=== PATIENT | male | born 1970 | race Hispanic/Latino ===

== ENCOUNTER 2019-06-14 23:52 | Inpatient (IN) | payer OTHER ==
[2019-06-15] MEDS ORDERED: cefTRIAXone\\ROCEPHIN 1 GM VIAL ONE (00:12)
[2019-06-15] MEDS ORDERED: Sodium Chloride 0.9% 100 ML ONE (00:12)
[2019-06-15] MEDS ORDERED: Metoclopramide HCl 10 MG/2 ML VIAL ONE (00:14)
--- NOTE | 2019-06-15 00:25 | PDOC.FPRHP ---
- History of Present Illness Chief Complaint: Coughing Up Blood History of Present Illness: Patient is a 48 y/o male who presents from half-way after coughing up blood. Patient states that he vomited up "a lot the first time, and a little bit the second time". Patient states that the vomitus looked like "coffee and black". Patient admits to associated symptoms of ABD pain, dizziness and lightheadedness. Patient stated that he went to see the nurse for his unit, and he subsequently vomited a third time, with minimal bloody vomitus noted. Care Home staff then notified EMS, who transferred him to [facility], where he was transfused 1U pRBCs and subsequently transferred to [facility] to receive a higher level of care. Patient states that he has had episodes of hematemsis in the past that have required blood transfusions. Per the patient, a recent endoscopy revealed multiple "holes in my stomach that were oozing blood." Per the patient, he has had +6 episodes of hematemisis in the recent past - one of which required banding of esophageal varices in August 2018. Patient admits to chills, blurry vision, nausea, RUQ ABD pain, black tarry stool (for 2 days) Patient denies fevers, oral sores, dysuria, hematuria, or excessive NSAID use. Per the patient, he had a colonoscopy in 2015, and was told that he had hemorrhoids and polyps - no follow-up was required. ED Course: While in the ED, the patient received 1U pRBCs (2U Total Since Initial Episode of Hematemesis) and was started on a Protonix gtt and an Octreotide gtt. - Allergies/Adverse Reactions Allergies Allergy/AdvReac Type Severity Reaction Status Date / Time No Known Allergies Allergy Unverified 06/15/19 00:16 - Home Medications Comments: Records obtained from half-way. - History PMHx: Cirrhosis, Hepatitis C, DM2, HTN PSHx: None FHx: DM2 (Multiple Member) Fatty Liver (Brother and Sister) Social: Patient admits to remote EtOH abuse, current tobacco abuse (3 cigarettes per week), and remote cocaine abuse Allergies: None Code Status: Full - Review of Systems General: denies: fever/chills Eyes: reports: vision changes Respiratory: reports: cough, exercise intolerance. denies: shortness of breath Cardiovascular: reports: edema (Patient thought that he had recently noticed swelling in his LEs). denies: chest pain Gastrointestinal: reports: nausea, vomiting, abdominal pain, GI bleeding. denies: diarrhea, constipation Genitourinary: denies: dysuria Skin: denies: rashes Neurological: reports: weakness. denies: syncope - Vital signs BP: [113/70] HR: [115] RR: [18] Tmax: [98.4] Pox: [100]% on [Room Air] Wt: [ 81 kg] - Physical Exam Constitutional: NAD, awake, alert and oriented, well developed HEENT: normocephalic and atraumatic, PERRLA, conjunctiva clear, no scleral icterus, grossly normal vision, grossly normal hearing, normal nasal mucosa, MMM , oropharynx clear Neck: supple, FROM, trachea midline, no LAD Chest: no-tender to palpation, no lesions Heart: normal S1/S2, no murmurs/rubs/gallops, pulses present, no edema -Heart: Tachycardia Lungs: CTAB, no respiratory distress, good air movement, no rales/rhonchi, no wheezing, no retractions Abdomen: soft, bowel sounds present, no masses/distention, no hernias -Abdomen: Mild RUQ TTP Musculoskeletal: normal structure, other (ROM grossly intact - patient was in restraints) Neurological: no focal deficit Skin: no rash/lesions (Patient appeared pale/jaundiced with a Cap Refill > 2 seconds) Heme/Lymphatic: no purpura, no petechia Psychiatric: intact recent and remote memory FMR H&P: Results - Labs Result Diagrams: 06/15/19 14:16 06/15/19 05:56 FMR H&P: A/P - Problem List (1) Hematemesis Current Visit: Yes Status: Acute Code(s): K92.0 - HEMATEMESIS (2) Cirrhosis Current Visit: Yes Status: Acute Code(s): K74.60 - UNSPECIFIED CIRRHOSIS OF LIVER (3) Hepatitis C Current Visit: Yes Status: Acute Code(s): B19.20 - UNSPECIFIED VIRAL HEPATITIS C WITHOUT HEPATIC COMA (4) HTN (hypertension) Current Visit: Yes Status: Acute Code(s): I10 - ESSENTIAL (PRIMARY) HYPERTENSION (5) DM2 (diabetes mellitus, type 2) Current Visit: Yes Status: Acute (6) History of esophageal varices Current Visit: Yes Status: Acute Code(s): Z87.19 - PERSONAL HISTORY OF OTHER DISEASES OF THE DIGESTIVE SYSTEM (7) Upper GI bleed Current Visit: Yes Status: Acute Code(s): K92.2 - GASTROINTESTINAL HEMORRHAGE, UNSPECIFIED - Plan Patient is a 48 y/o male with a PMH significant for Cirrhosis, HepC, and Esophageal Varices who presents to the ED from [facility] for evaluation of "coughing up blood." 1. Upper GI Bleed -Recent episodes of hematemesis are concerning in light of known comorbidities and Hx of Esophageal Varices -s/p 1U pRBCs at outside facility - will transfuse an additional unit now -No recurrent episodes of hematemsis since admission -Repeat CBC, CMP and PT/INR/aPTT later this AM following transfusion -Started on Protonix gtt in ED - will continue -s/p Ceftriaxone in ED - will continue -GI: Consulted, recs appreciated 2. Cirrhosis -Likely contributing to #1 -Will avoid hepatotoxic agents -Holding home Lactulose regimen for now -Continue to monitor 3. Hx of Esophageal Varices -Patient denies bright red blood in vomitus but Hx of Esophageal Varices is concerning -Will initiate Octreotide gtt at this time - plan confirmed with GI -Will restart home Propranolol regimen -Continue to monitor 4. DM2 -Blood Glucose: 385 on admission -b-Hydroxybutyrate: Pending -Will resume home medication regimen -Moderate SSI -Accuchecks Q6H -Hypoglycemia Protocol 5. HTN -BP was at acceptable range during evaluation in ED -Will bolus an additional unit of NS at this time -Will restart home Propranolol regimen 6. Hepatitis C -Patient does not take medications for HepC at home -Continue to monitor PCP: [facility] - Long-Term Code: Full Diet: NPO Activity: Strict Bedrest VTE PPx: SCDs Dispo: Patient is currently stable and admitted to the Medical Floor for evaluation of Upper GI Bleed. Transfuse 1U pRBCs and additional fluids and medications as per above. GI consulted and will evaluate this AM for planned endoscopy - recs appreciated. Await results of labs as per above and tailor plan of care accordingly. Expected LOS > 48H. FMR H&P: Upper Level - Plan Date/Time: 06/15/19 0025 PCP: Long-Term HPI: This is a 48 yo M with hx cirrhosis and esophageal varices w/ banding in August 2018 being admitted for GI Bleed. Pertinent PMH includes cocaine abuse, alcohol abuse, Hep C, DM, HTN. He was admitted to [facility] last week and had an EGD which showed PUD. Today he states he has had hematemesis for 2 days along with dark stools. States he has been feeling weak and light-headed when standing up and this was his reason for being sent to the ED for evaluation. He denies fevers, chills, sweats. He states he was still tolerating PO. He states when he was younger he got blackout drunk often, thinks he got Hep C from tattoos. He received 1 U of blood at outside ED along with octreotide and protonix. He received another 1U of blood in our ED along with rocephin, reglan, and protonix. (2 U blood total) REVIEW OF SYSTEMS: Gen: no fever, chills, or sweats Neuro: denies headache Eyes: no visual changes ENT: no hearing changes, no sore throat, no congestion Resp: denies cough, SOB Card: denies CP, palpitations GI: see hpi Heme: no easy bruising/bleeding, no blood thinners Skin: no rash, no erythema PHYSICAL EXAMINATION: General: NAD, alert and oriented x3 HEENT: PERRLA, EOMI, normal sclera, oropharynx without erythema or exudate Neck: Supple. Full ROM. Heart/Cardiovascular System: RRR, Cap refill < 3 seconds, no rub, no murmur Lungs/Respiratory System: CTA-B, no resp distress Abdomen/Gastro-Intestinal System: no abdominal tenderness, normal bowel sounds, non-distended, soft, no rebound or guarding Extremities: Warm extremities. No cyanosis or edema Neuro: No gross deficits appreciated. CN 2-12 grossly intact Psychiatry: Awake, Alert and cooperative with exam Skin: No lesions, rashes, or ulcers Musculoskeletal: Full ROM Labs from [place]: Hgb 5.6, Hct 17.9, WBC 6.8, Plt 88 INR 1.3, PT 14.3 Na 127, K 5.3, Cl 98, Co2 17, BUN 44, Cr 0.9, Glu 383 CXR no acute process A/P: # Upper GI bleed, hx cirrhosis and eso varices - 2U PRBC total, protonix and octreotide drips, s/p rocephin - Spoke to GI, will see patient in AM, NPO - BUN/Cr elevated, Will cont IVF aggressive - On lactulose at [facility], will hold for now - Hx of hep C, alcoholism # HTN, DM - Home meds - AG 12, refused insulin last 2 days, resume home regimen # Anxiety/Depression - Effexor, Risperdal # Hyponatremia - Corrected to 132, NS, re-check in AM, likely volume down Fluids: NS Code status: full PPx: none Dispo: >2 midnights, pending GI eval Addendum - Attending - Attending Attestation Date/Time: 06/15/19 3739 I personally evaluated the patient and discussed the management with Dr. Sheets and Jackie. I agree with the History, Examination, Assessment and Plan documented above with any addition or exceptions noted below.
[2019-06-15] MEDS ORDERED: Pantoprazole 80 MG, Admixture Fee 1 EACH in Sodium Chloride 0.9% 100 ML IVPB SCH (00:30)
[2019-06-15] MEDS ORDERED: Dextrose 50% Abboject 50 ML SYRINGE SLOW IVP PRN (01:54)
[2019-06-15] MEDS ORDERED: HumaLOG 300 UNITS/3 ML VIAL SC PRN (01:54)
[2019-06-15] MEDS ORDERED: Dextrose 5% in Water 1,000 ML IV PRN (01:54)
[2019-06-15] MEDS ORDERED: Acetaminophen 325 MG TAB PO PRN (03:03)
[2019-06-15] MEDS ORDERED: Ondansetron PF 4 MG/2 ML Vial IVP PRN (03:03)
[2019-06-15] MEDS ORDERED: Sodium Chloride 0.9% 1,000 ML IV SCH ×2 (03:03)
[2019-06-15] MEDS ORDERED: Ondansetron ODT 4 MG TAB SL PRN (03:03)
[2019-06-15] MEDS: Octreotide Acetate 1,250 MCG in Sodium Chloride 0.9% 250 ML 250 ML IVPB SCH (04:09)
[2019-06-15] MEDS: HumaLOG 300 UNITS/3 ML VIAL SC PRN ×2 (04:47→17:44)
[2019-06-15 06:13] LABS: INR-International Normal Ratio 1.3; PTT 30.3 SEC (22.9-36.1); Prothrombin Time 15.8 SEC (12.0-14.7)
[2019-06-15 06:23] LABS: #Lymphocytes 1.4 thou/uL (1.20-3.40); #Monocytes 0.5 thou/uL (0.11-0.59); #Neutrophils 2.6 thou/uL (1.40-6.50); %Basophils 0.5 % (0.0-1.0); %Lymphocytes 30.3 % (21.0-51.0); %Monocytes 10.8 % (0.0-10.0); %Neutrophils 57.3 % (42.0-75.0); Hemoglobin 6.7 g/dL (14.0-18.0); Hypochromia MODERATE=16-30 cells (100X) (0-5/hpf); MDiff Complete? YES; Mean Corpuscular HGB CONC 33.1 g/dL (32.0-36.0); Mean Corpuscular Volume 87.7 fL (78.0-98.0); Mean Platelet Volume 10.2 fL (7.4-10.4); Platelet Count 58 thou/uL (130-400); Platelet Morphology Comment Appears Decreased; RBC Distribution Width 14.2 % (11.5-14.5); Red Blood Cell (RBC) Count 2.32 mill/uL (4.70-6.10); Reflex for Review?? YES; White Blood Cell (WBC) Count 4.5 thou/uL (4.8-10.8)
[2019-06-15 06:29] LABS: ALT (SGPT) 37 U/L (8-55); AST (SGOT) 34 U/L (5-34); Albumin 2.5 g/dL (3.5-5.0); Alkaline Phosphatase 65 U/L (40-110); Anion Gap 10 mmol/L (10-20); BUN (Urea Nitrogen) 27 mg/dL (8.9-20.6); Bilirubin, Total 0.7 mg/dL (0.2-1.2); Calc. Creatinine Clearance 105 mL/min (70-130); Calcium 6.9 mg/dL (7.8-10.44); Carbon Dioxide 21 mmol/L (22-29); Chloride 106 mmol/L (98-107); Estimated GFR-MDRD Greater than 90; Globulin 2.2 g/dL (2.4-3.5); Glucose 271 mg/dL (70-105); Potassium 4.3 mmol/L (3.5-5.1); Protein, Total 4.7 g/dL (6.0-8.3); Sodium 133 mmol/L (136-145)
[2019-06-15] MEDS ORDERED: metFORMIN 500 MG TAB PO SCH (08:00)
[2019-06-15] MEDS ORDERED: Ketamine 50 MG/ML (10ML VIAL) ONE (09:44)
[2019-06-15] MEDS ORDERED: Ondansetron ODT 4 MG TAB ONE (09:57)
[2019-06-15] MEDS: Ondansetron PF 4 MG/2 ML Vial IVP PRN ×2 (11:33→21:06)
[2019-06-15] MEDS ORDERED: PROPOFOL 200 MG/20 ML VIAL ONE (11:58)
[2019-06-15] MEDS: NPH, Human Insulin Isophane 300 UNIT/3 ML VIAL SC SCH ×2 (12:16→20:58)
[2019-06-15] MEDS: Propranolol 10 MG TAB PO SCH ×2 (12:16→20:57)
--- NOTE | 2019-06-15 13:12 | CON ---
DATE OF CONSULTATION: 06/15/2019 REASON FOR CONSULTATION: Hematemesis, melena. CONSULTING PROVIDER: Deyvi Sheets MD HISTORY OF PRESENT ILLNESS: The patient is a 48-year-old male with past medical history of cirrhosis complicated by esophageal varices, chronic hepatitis C infection (status unknown), diabetes, and hypertension, presenting with complaints of hematemesis. He states that he had been complaining of hematemesis for the last few weeks and was initially seen at [facility] for this particular condition. He underwent upper endoscopy last week and was told that they "found something oozing" with no interventions taken per the patient. He was subsequently discharged to the hospital back to the unit, and while on the unit, continued to have intermittent episodes of hematemesis in addition to the appearance of black stools approximately 2 days ago. These black stools he would have approximately 2 to 3 per day were solid in consistency, but hard to clean off. This was associated with increased coffee-ground emesis x2 over the same time period, which then ultimately prompted him to come back to the hospital. While in the ER, the patient was noted to have a significantly decreased hemoglobin and hematocrit, and he was subsequently transferred to [facility] from [facility] for further evaluation. Currently, the patient states that he has been having increasing right lower quadrant abdominal pain for the last 2 weeks and characterized as a fullness/tightness type sensation that is nonradiating and reaches a severity of 8/10. The pain is worse with eating or drinking, but better with fasting states and passing gas/having a bowel movement. Otherwise, he endorses nausea and vomiting with the coffee-ground emesis as stated above. Otherwise, he denies any fevers, chills, hematochezia, odynophagia, dysphagia, or weight loss. Upon speaking with the patient, his last colonoscopy was in 2016 with hemorrhoids and polyps removed at that time. He denies any family history of GI malignancies. REVIEW OF SYSTEMS: A 10-category review of systems was obtained with all responses negative except for the pertinent positives as listed in HPI. PAST MEDICAL HISTORY: As per HPI. PAST SURGICAL HISTORY: 1. Multiple upper endoscopies with band ligation performed in the past. FAMILY HISTORY: Denies any GI malignancies, but does have a family history of liver disease (fatty liver). SOCIAL HISTORY: Denies any tobacco, alcohol, or illicit drug use. OUTPATIENT MEDICATIONS: Reviewed. ALLERGIES: NO KNOWN DRUG ALLERGIES. PHYSICAL EXAMINATION: VITAL SIGNS: Temperature 98.3, pulse 88 blood pressure 100/65, respiratory rate 18, and saturating 98% on room air. GENERAL: The patient was lying in bed, in no acute distress. Alert and oriented x4. HEENT: Normocephalic and atraumatic. NECK: Supple. No JVD or scleral icterus noted. CARDIOVASCULAR: Regular rate and rhythm with no discernable murmurs, gallops, or rubs. RESPIRATORY: Clear to auscultation bilaterally with no discernable wheezes or rales. ABDOMEN: Normoactive bowel sounds. Soft and nondistended. Mild tenderness to palpation in the right upper quadrant, right lower quadrant, and suprapubic regions. EXTREMITIES: No cyanosis, clubbing, or edema. LABORATORY DATA: CBC with a white blood cell count of 4.5, hemoglobin 6.7, hematocrit 20.3, and platelets 58. INR 1.3. Chemistry with a sodium of 133, potassium 4.3, chloride 106, CO2 of 21, BUN 27, creatinine 0.87, and glucose 271. AST 34, ALT 37, alkaline phosphatase 65, and total bilirubin 0.7. Calculation of his MELD-sodium score was 15. IMAGING DATA: No current GI imaging is available for review. ASSESSMENT AND PLAN: The patient is a 48-year-old male with past medical history of diabetes, hypertension, and cirrhosis, complicated by a bleeding esophageal varices in the past, presenting with hematemesis and melena concerning for an upper gastrointestinal bleed. Upper gastrointestinal bleed: The patient is presenting with a recent history of hematemesis, for which he was worked up at [facility] and underwent upper endoscopy last week. He was told that he had "something oozing" in addition to possible Garces esophagus. Per the patient, no interventions were taken at that time and he was ultimately discharged back to his detention cell via medical management. However, approximately 2 days ago, he began having increasing episodes of coffee-ground emesis in addition to melenic type stools, concerning for an upper gastrointestinal bleed. He was subsequently transferred to [facility] and noted to have a significantly decreased hemoglobin and hematocrit when compared to baseline. He was then transferred to [facility] for further evaluation via GI subspecialty. At this time, the differential could include peptic ulcer disease, portal hypertensive gastropathy, esophagitis, esophageal varices (especially given his history of bleeding varices in the past), arteriovenous malformation, Dieulafoy lesion, or gastrointestinal neoplasm (much less likely given recent negative upper endoscopy). RECOMMENDATIONS: 1. Would continue to trend his hemoglobin and hematocrit and transfuse as necessary to maintain the hemoglobin and hematocrit of 7/21. 2. Continue to monitor clinically for signs of active GI bleeding. 3. Would continue with PPI and octreotide drips in light of possible variceal bleed. 4. Agree with antibiotic administration for SBP prophylaxis in light of GI bleed. 5. Would proceed with urgent upper endoscopy for further evaluation. Further recommendations to follow procedure. We will continue to follow. Please call with any questions. Job ID: [id number]
[2019-06-15 14:37] LABS: #Basophils 0.1 thou/uL (0.0-0.2); #Eosinphils 0.1 thou/uL (0.0-0.7); #Lymphocytes 1.1 thou/uL (1.20-3.40); #Monocytes 0.6 thou/uL (0.11-0.59); #Neutrophils 4.4 thou/uL (1.40-6.50); %Basophils 0.8 % (0.0-1.0); %Eosinophils 1.2 % (0.0-10.0); %Lymphocytes 16.8 % (21.0-51.0); %Monocytes 10.3 % (0.0-10.0); Hemoglobin 8.7 g/dL (14.0-18.0); Mean Corpuscular Hemoglobin 29.7 pg (27.0-31.0); Mean Corpuscular Volume 87.2 fL (78.0-98.0); Mean Platelet Volume 10.7 fL (7.4-10.4); Platelet Count 63 thou/uL (130-400); RBC Distribution Width 14.1 % (11.5-14.5); Red Blood Cell (RBC) Count 2.94 mill/uL (4.70-6.10); White Blood Cell (WBC) Count 6.2 thou/uL (4.8-10.8)
--- NOTE | 2019-06-15 15:33 | OP ---
DATE OF PROCEDURE: 06/15/2019 PROCEDURE PERFORMED: Esophagogastroduodenoscopy with band ligation x4. INDICATIONS FOR PROCEDURE: Hematemesis, melena. DESCRIPTION OF PROCEDURE: After the risks and benefits of the procedure were explained to the patient including risks of bleeding, infection, perforation, reactions to anesthesia, aspiration, and/or pain, informed consent was obtained. The patient was then taken to the endoscopy suite, where he was maneuvered into the left lateral decubitus position followed by introduction of deep anesthesia via propofol and anesthesia support. Once adequate sedation was achieved, the standard gastroscope was introduced into the mouth with intubation of the esophagus, stomach, and the proximal small intestines with the findings listed below. The patient tolerated the procedure well with no immediate perioperative complications. Upon conclusion of the procedure, all equipment was removed from the patient and he was transferred to PACU in satisfactory condition. FINDINGS: Esophagus: Normal-appearing mucosa was seen in the proximal and mid esophagus; however, in the distal esophagus, large (grade 2) esophageal varices were seen with increased mucosal erythema and red karolina sign overlying 2 of the esophageal varices. Given the high-risk stigmata of bleeding, band ligation x4 were then performed with active bleeding from the varices during the banding process, but no bleeding noted after the maneuver. Elberfeld-colored mucosa was also seen in the distal esophagus, extending from the gastroesophageal junction approximately around 5 cm with scattered squamous islands for approximately 1 cm beyond that (Glasford classification C5 M6). There were increased erosions seen in the distal esophagus as well, measuring up to 1 cm in size, but not extending between more than 1 gastric fold. Otherwise, there was no evidence of mass lesions. Stomach: Very mild mucosal erythema was seen in the gastric cardia, fundus, body, and along the greater curvature in a mosaic type pattern, consistent with his known portal hypertensive gastropathy. Normal-appearing mucosa was then seen in the antrum and incisura. On retroflexion, there was no evidence of gastric varices. Otherwise, there was no evidence of erosions, ulcerations, mass lesions, or active/recent bleeding. Duodenum: Normal-appearing mucosa was seen in both the duodenal bulb and second portion of the duodenum. There was no evidence of erosions, ulcerations, mass lesions, or active/recent bleeding. IMPRESSION: 1. Large (grade 2) distal esophageal varices with red karolina signs status post band ligation x4. 2. LA grade B/C reflux-mediated erosive esophagitis. 3. Elberfeld-colored mucosa in the distal esophagus, consistent with Garces's esophagus (Glasford classification C5 M6); not biopsied today given the presence of esophageal varices. 4. Mild portal hypertensive gastropathy. RECOMMENDATIONS: 1. Would continue to trend his hemoglobin and hematocrit and transfuse as necessary to maintain the hemoglobin and hematocrit of 7/21. 2. Continue to monitor clinically for signs of active GI bleeding. 3. Would continue the patient on PPI drip for duration of 24 hours, then transfer the patient to pantoprazole 40 mg IV b.i.d. 4. Would continue the patient on the octreotide drip for total duration of therapy of 72 hours. 5. Would continue ceftriaxone 1 g daily as part of infection prophylaxis in a patient with cirrhosis with GI bleed. 6. Pain control per primary team. 7. The patient will likely need a repeat upper endoscopy in 4 to 6 weeks for re-evaluation of esophageal varices and repeat band ligation at that time if deemed necessary. We will continue to follow. Please call with any questions. Job ID: [id number]
[2019-06-15] MEDS ORDERED: cefTRIAXone\\ROCEPHIN 1 GM in Sodium Chloride 0.9% 100 ML IVPB SCH (17:00)
[2019-06-15] MEDS: Sodium Chloride 0.9% 1,000 ML IV SCH (17:41)
[2019-06-15] MEDS: Artificial Tear Sol 15 ML BOT EA EYE PRN (20:59)
[2019-06-15] MEDS: Pantoprazole 80 MG in Sodium Chloride 0.9% 100 ML IVP SCH (22:19)
[2019-06-16] MEDS: cefTRIAXone\\ROCEPHIN 1 GM in Sodium Chloride 0.9% 100 ML IVPB SCH (01:08)
[2019-06-16] MEDS: Sodium Chloride 0.9% 1,000 ML IV SCH ×2 (04:16→04:48)
[2019-06-16] MEDS: Octreotide Acetate 1,250 MCG in Sodium Chloride 0.9% 250 ML 250 ML IVPB SCH (04:43)
[2019-06-16 05:38] LABS: #Basophils 0.1 thou/uL (0.0-0.2); #Eosinphils 0.5 thou/uL (0.0-0.7); #Lymphocytes 1.9 thou/uL (1.20-3.40); #Monocytes 0.9 thou/uL (0.11-0.59); #Neutrophils 6.1 thou/uL (1.40-6.50); %Basophils 0.6 % (0.0-1.0); %Eosinophils 5.1 % (0.0-10.0); %Lymphocytes 20.1 % (21.0-51.0); %Monocytes 9.8 % (0.0-10.0); %Neutrophils 64.5 % (42.0-75.0); Hemoglobin 9.2 g/dL (14.0-18.0); Mean Corpuscular HGB CONC 33.1 g/dL (32.0-36.0); Mean Corpuscular Hemoglobin 28.7 pg (27.0-31.0); Mean Corpuscular Volume 86.8 fL (78.0-98.0); Mean Platelet Volume 10.2 fL (7.4-10.4); Platelet Count 130 thou/uL (130-400); RBC Distribution Width 14.8 % (11.5-14.5); Red Blood Cell (RBC) Count 3.19 mill/uL (4.70-6.10); White Blood Cell (WBC) Count 9.4 thou/uL (4.8-10.8)
--- NOTE | 2019-06-16 08:13 | PDOC.FM ---
- Subjective Subjective: pt resting comfortably in bed, tolerating PO, denies hematochezia/hematemesis - Objective Vital Signs & Weight: Vital Signs (12 hours) Temp Pulse Resp BP Pulse Ox 06/16/19 04:00 97.5 F L 67 16 121/77 97 Weight Weight 76.476 kg Result Diagrams: 06/16/19 05:06 06/15/19 05:56 Phys Exam - Physical Examination Constitutional: NAD HEENT: moist MMs Neck: no JVD Gastrointestinal: non-tender, no distention Musculoskeletal: no edema Neurological: moves all 4 limbs Psychiatric: normal affect Skin: no rash Dx/Plan (1) Cirrhosis Code(s): K74.60 - UNSPECIFIED CIRRHOSIS OF LIVER Status: Acute (2) DM2 (diabetes mellitus, type 2) Status: Acute (3) HTN (hypertension) Code(s): I10 - ESSENTIAL (PRIMARY) HYPERTENSION Status: Acute (4) Hepatitis C Code(s): B19.20 - UNSPECIFIED VIRAL HEPATITIS C WITHOUT HEPATIC COMA Status: Acute (5) Upper GI bleed Code(s): K92.2 - GASTROINTESTINAL HEMORRHAGE, UNSPECIFIED Status: Acute - Plan Plan: Upper GI bleed, hx cirrhosis and eso varices - 2U PRBC total, protonix and octreotide drips, rocephin - GI consulted, appreciate recs - On lactulose at custodial, will hold for now - Hx of hep C, alcoholism - s/p banding of esophageal varices. HTN, DM - Home meds Anxiety/Depression - Effexor, Risperdal Hyponatremia - monitor Fluids: NS Code status: full PPx: none Dispo:further eval today Addendum - Attending - Attending Attestation Date/Time: 06/16/19 7840 I personally evaluated the patient and discussed the management with Dr. Sahni I agree with the History, Examination, Assessment and Plan documented above with any addition or exceptions noted below. Patient known cirrhotic with esophageal varices s/p banding and transfusion 1 u PRBC he is hemodynamically stable tolerating clear liquids. Plan is for 72 hours of oceotride , IV protonix appreciate GI recommendations. Continue to observe for any signs active GI bleeding. MELD score to be determined SBP prophylaxis with Rocephin.
[2019-06-16] MEDS: Propranolol 10 MG TAB PO SCH ×2 (08:17→20:17)
[2019-06-16] MEDS: Artificial Tear Sol 15 ML BOT EA EYE PRN ×2 (08:19→20:23)
[2019-06-16] MEDS: Pantoprazole 80 MG in Sodium Chloride 0.9% 100 ML IVP SCH ×2 (09:27→20:14)
[2019-06-16] MEDS: NPH, Human Insulin Isophane 300 UNIT/3 ML VIAL SC SCH ×2 (09:31→20:17)
--- NOTE | 2019-06-16 10:21 | PRG ---
DATE OF SERVICE: 06/16/2019 REASON FOR CONSULTATION: Hematemesis, melena, history of cirrhosis with esophageal varices. SUBJECTIVE: The patient underwent urgent upper endoscopy yesterday for hematemesis with the findings of reflux esophagitis, Garces esophagus in addition to large esophageal varices with high-risk stigmata of bleeding. The varices were then intervened upon with band ligation x4 with no bleeding noted at the end of maneuver. Overnight, the patient did not have any acute events or problems with no further episodes of hematemesis or melena. Today, he states that he is feeling well with no problems or complaints. Currently, he denies any nausea, vomiting, fevers, chills, hematemesis, melena, or hematochezia. OBJECTIVE: VITAL SIGNS: Temperature 97.5, pulse 65, blood pressure 117/74, respiratory rate 18, saturating 98% on room air. GENERAL: The patient was lying in bed, in no acute distress. Alert and oriented x4. CARDIOVASCULAR: Regular rate and rhythm. RESPIRATORY: Clear to auscultation bilaterally. ABDOMEN: Normoactive bowel sounds. Soft, nontender, nondistended. EXTREMITIES: No cyanosis, clubbing, or edema. LABORATORY DATA: CBC with a white blood cell count of 9.4, hemoglobin 9.2, hematocrit 27.7, platelets 130. IMAGING DATA: The patient underwent upper endoscopy on June 15, 2019, with the findings of LA grade B/C reflux-mediated erosive esophagitis, salmon-colored mucosa in the distal esophagus consistent with Garces esophagus in addition to large esophageal varices with red karolina sign overlying them consistent with high-risk stigmata of bleeding. Band ligation was performed x4 with increased bleeding upon engaging the varices, but with band ligation, no further bleeding was noted. ASSESSMENT AND PLAN: The patient is a 48-year-old male with past medical history of diabetes, hypertension, and cirrhosis complicated by bleeding esophageal varices in the past, presenting with hematemesis and melena with an upper endoscopy findings consistent with bleeding esophageal varices. Upper gastrointestinal bleed/esophageal varix bleed. The patient recently presented to [facility] and underwent an upper endoscopy last week with the findings of possible Garces esophagus and "something oozing." Per the patient, no interventions were taken, but shortly after being transferred back to care home, he experienced coffee-grounds emesis and melenic type stools concerning for gastrointestinal bleed. He subsequently underwent upper endoscopy on June 15, 2019, with findings of LA grade B/C reflux esophagitis in addition to large esophageal varices with red karolina sign. He subsequently underwent band ligation x4 with good hemostasis achieved. Overnight, his hemoglobin and hematocrit have remained stable and he has not had any further episodes of hematemesis or melena. RECOMMENDATIONS: 1. Would continue to trend his H and H and transfuse as necessary to maintain an H and H of 7/21. 2. Continue to monitor clinically for signs of active GI bleeding. 3. Would transfer the patient from PPI drip to pantoprazole 40 mg IV b.i.d. until seen in the outpatient [facility]. 4. We will continue octreotide for a total duration of therapy of 72 hours in light of recent variceal bleeding. 5. Would continue ceftriaxone 1 g daily as part of infection prophylaxis in a patient with cirrhosis with GI bleed. 6. Pain control per primary team. 7. The patient will need a repeat upper endoscopy in 4 to 6 weeks for re-evaluation of the esophageal varices and possible repeat banding at that time for eradication purposes. 8. Cirrhosis. a. The patient is presenting with a prior history of cirrhosis with most likely etiology being either chronic hepatitis C infection or alcohol abuse as an outpatient. Currently with decompensated disease given the presence of bleeding esophageal varices noted on upper endoscopy yesterday. Currently with a MELD score of 15 and Child-Leo classification class B (7 points). With the patient currently being incarcerated, he should be followed in the [facility] system at [facility] for hepatology purposes. 9. Would have the patient follow up in the outpatient Hepatology Clinic in 2 to 3 weeks after discharge. 10. Given his elevated MELD score, could be considered for transplant evaluation. 11. We will continue to follow. Please call with any questions. Job ID: [id number]
[2019-06-16] MEDS: HumaLOG 300 UNITS/3 ML VIAL SC PRN (12:09)
[2019-06-16] MEDS ORDERED: Simethicone Chewable 80 MG TAB PO SCH (19:00)
[2019-06-17] MEDS: cefTRIAXone\\ROCEPHIN 1 GM in Sodium Chloride 0.9% 100 ML IVPB SCH (00:54)
[2019-06-17] MEDS: Octreotide Acetate 1,250 MCG in Sodium Chloride 0.9% 250 ML 250 ML IVPB SCH (05:11)
[2019-06-17] MEDS: HumaLOG 300 UNITS/3 ML VIAL SC PRN ×3 (07:09→17:11)
--- NOTE | 2019-06-17 07:33 | PDOC.FM ---
- Subjective Subjective: pt resting comfortably in bed, denies hematemesis, or hematochezia. - Objective Vital Signs & Weight: Vital Signs (12 hours) Temp Pulse Resp BP Pulse Ox 06/16/19 20:17 98.5 F 78 16 117/74 97 06/16/19 20:00 97 Weight Weight 76.476 kg Result Diagrams: 06/17/19 07:54 06/15/19 05:56 Phys Exam - Physical Examination Constitutional: NAD HEENT: moist MMs Neck: supple Cardiovascular: no significant murmur Gastrointestinal: non-tender, no distention Musculoskeletal: pulses present Neurological: moves all 4 limbs Psychiatric: normal affect Skin: no rash Dx/Plan (1) Cirrhosis Code(s): K74.60 - UNSPECIFIED CIRRHOSIS OF LIVER Status: Acute (2) DM2 (diabetes mellitus, type 2) Status: Acute (3) HTN (hypertension) Code(s): I10 - ESSENTIAL (PRIMARY) HYPERTENSION Status: Acute (4) Hepatitis C Code(s): B19.20 - UNSPECIFIED VIRAL HEPATITIS C WITHOUT HEPATIC COMA Status: Acute (5) Upper GI bleed Code(s): K92.2 - GASTROINTESTINAL HEMORRHAGE, UNSPECIFIED Status: Acute - Plan Plan: Upper GI bleed, hx cirrhosis and eso varices - 2U PRBC total, octreotide drip for a total of 72 hrs, rocephin, protonix BID - GI consulted, appreciate recs - On lactulose at assisted, consider restarting - Hx of hep C, alcoholism - s/p banding of esophageal varices. anemia - monitor H&H, transfuse as necessary HTN, DM - Home meds Anxiety/Depression - Effexor, Risperdal Hyponatremia - monitor Fluids: NS Code status: full PPx: none Dispo:dc planning to include IV protonix, 1-2 days, monitor hb Addendum - Attending - Attending Attestation Date/Time: 06/17/19 1110 I personally evaluated the patient and discussed the management with Dr. Sahni I agree with the History, Examination, Assessment and Plan documented above with any addition or exceptions noted below. Hemoglobin noted 8 this am no s/s active bleeding continue to trend transfuse prn keep hgb greater 7. Will look into option for transfer to the [facility] system [facility] etc.. for continued care medical care IV protonix etc...
[2019-06-17] MEDS: Propranolol 10 MG TAB PO SCH ×2 (08:20→21:01)
[2019-06-17] MEDS: Pantoprazole 40 MG VIAL IVP SCH ×2 (08:20→21:00)
[2019-06-17] MEDS: Artificial Tear Sol 15 ML BOT EA EYE PRN ×2 (08:26→21:56)
[2019-06-17] MEDS: NPH, Human Insulin Isophane 300 UNIT/3 ML VIAL SC SCH ×2 (08:34→21:47)
[2019-06-17] MEDS ORDERED: Non-Formulary Item 1 EACH (Lactulose 10 Gm/15ml Oral Sol 20 GM) PO SCH (15:00)
[2019-06-17 15:11] LABS: #Eosinphils 0.1 thou/uL (0.0-0.7); #Monocytes 0.4 thou/uL (0.11-0.59); %Basophils 0.8 % (0.0-1.0); %Eosinophils 2.5 % (0.0-10.0); %Lymphocytes 28.3 % (21.0-51.0); %Monocytes 10.9 % (0.0-10.0); %Neutrophils 57.5 % (42.0-75.0); Mean Corpuscular HGB CONC 33.4 g/dL (32.0-36.0); Mean Corpuscular Hemoglobin 29.6 pg (27.0-31.0); Mean Corpuscular Volume 88.5 fL (78.0-98.0); Mean Platelet Volume 10.6 fL (7.4-10.4); Platelet Count 51 thou/uL (130-400); RBC Distribution Width 14.7 % (11.5-14.5); White Blood Cell (WBC) Count 3.5 thou/uL (4.8-10.8)
[2019-06-17 15:41] LABS: Anisocytosis SLIGHT = 6-15 cells (100X) (0-5/hpf); MDiff Complete? YES; Platelet Morphology Comment Appears Decreased; Polychromasia MODERATE = 3-4 cells (100X) (0-2/hpf)
--- NOTE | 2019-06-17 19:59 | PRG ---
DATE OF SERVICE: 06/17/2019 REASON FOR CONSULTATION: Hematemesis; melena; and bleeding esophageal varices, status post band ligation x4. SUBJECTIVE: Today, the patient states that he has been having some mild periumbilical abdominal discomfort in addition to having a larger black bowel movement earlier this morning. He has not had any additional bowel movement since then nor does he describe any hematemesis or hematochezia. He has been able to tolerate a more liquid diet and was given more solid food later this evening. Otherwise, he denies any nausea, vomiting, fevers, chills, dysphagia, or odynophagia. OBJECTIVE: VITAL SIGNS: Temperature 98.2, pulse 76, blood pressure 105/70, respiratory rate 16, saturating 97% on room air. GENERAL: The patient was sitting at bedside, in no acute distress. Alert and oriented x4. CARDIOVASCULAR: Regular rate and rhythm. RESPIRATORY: Clear to auscultation bilaterally. ABDOMEN: Normoactive bowel sounds. Soft, nontender, nondistended. EXTREMITIES: No cyanosis, clubbing, or edema. LABORATORY DATA: CBC with a white blood cell count of 3.5, hemoglobin 8.0, hematocrit 23.9, platelets 51. IMAGING DATA: No current GI imaging is available for review. ASSESSMENT AND PLAN: The patient is a 48-year-old male with past medical history of diabetes, hypertension, and cirrhosis complicated by bleeding esophageal varices in the past, now presenting with hematemesis and melena with EGD showing bleeding esophageal varices. 1. Upper GI bleed/esophageal varix bleed. 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 He subsequently underwent a repeat upper endoscopy on June 15, 2019, with the findings of LA grade B/C reflux esophagitis in addition to large esophageal varices with red karolina sign. He subsequently underwent band ligation x4 with active bleeding seen during the band ligation process, but no bleeding at the end of maneuvers. However, today, the patient experienced a larger black melenic appearing stool and a drop in his H and H concerning for continued bleeding. At this time, it is unclear if the black stool was due to the expression of old blood or if it was due to increased bleeding from his esophageal varices or from the band ligation sites themselves. Recommendations;. a. Would continue to trend his H and H and transfuse as necessary to maintain an H and H of 7/. b. Continue to monitor clinically for signs of active GI bleeding. c. We will continue the patient on PPI 40 mg IV b.i.d. d. Continue octreotide drip for total duration of 72 hours (can discontinue tomorrow). e. We will continue antibiotics as part of infectious prophylaxis. f. Pain control per primary team. g. If the patient shows a significantly decreased H and H tomorrow or any other evidence of melenic type stools, I would recommend a repeat upper endoscopy for re-evaluation of his esophageal varices and possible sclerotherapy. The patient is also a potential candidate for TIPS, that could be performed at [facility] in [place]. 2. Cirrhosis. The patient is presenting with a prior history of cirrhosis with most likely etiology being either chronic hepatitis C infection or alcohol abuse or a combination of the 2. Currently, with decompensated disease, given the presence of bleeding esophageal varices noted on upper endoscopy during this admission. Currently, with a MELD score of 15 and Child-Leo classification B. Recommendations;. a. Would have the patient to follow up in the outpatient hepatology clinic at [facility] in 2 to 3 weeks after discharge. b. Given his elevated MELD score, he should be considered for transplant evaluation at that time. We will continue to follow. Please call with any questions. Job ID: [id number]
[2019-06-17] MEDS ORDERED: NPH, Human Insulin Isophane 300 UNIT/3 ML VIAL SC SCH (21:45)
[2019-06-17] MEDS ORDERED: Acetaminophen 325 MG TAB PO SCH (23:15)
[2019-06-17 23:40] VITALS: BMI 27.1
[2019-06-18] MEDS: cefTRIAXone\\ROCEPHIN 1 GM in Sodium Chloride 0.9% 100 ML IVPB SCH ×2 (00:57→23:49)
[2019-06-18 05:50] LABS: #Eosinphils 0.1 thou/uL (0.0-0.7); #Monocytes 0.3 thou/uL (0.11-0.59); #Neutrophils 1.4 thou/uL (1.40-6.50); %Basophils 0.9 % (0.0-1.0); %Eosinophils 3.4 % (0.0-10.0); %Lymphocytes 34.8 % (21.0-51.0); %Neutrophils 48.9 % (42.0-75.0); Hemoglobin 7.6 g/dL (14.0-18.0); Mean Corpuscular HGB CONC 33.5 g/dL (32.0-36.0); Mean Corpuscular Hemoglobin 29.1 pg (27.0-31.0); Mean Corpuscular Volume 87.1 fL (78.0-98.0); Mean Platelet Volume 10.7 fL (7.4-10.4); Platelet Count 50 thou/uL (130-400); RBC Distribution Width 14.7 % (11.5-14.5); White Blood Cell (WBC) Count 2.8 thou/uL (4.8-10.8)
[2019-06-18 06:02] LABS: ALT (SGPT) 48 U/L (8-55); AST (SGOT) 40 U/L (5-34); Albumin 2.6 g/dL (3.5-5.0); Alkaline Phosphatase 66 U/L (40-110); Anion Gap 8 mmol/L (10-20); BUN (Urea Nitrogen) 8 mg/dL (8.9-20.6); Bilirubin, Total 0.5 mg/dL (0.2-1.2); Calc. Creatinine Clearance 130 mL/min (70-130); Calcium 7.3 mg/dL (7.8-10.44); Carbon Dioxide 24 mmol/L (22-29); Chloride 107 mmol/L (98-107); Estimated GFR-MDRD Greater than 90; Globulin 2.5 g/dL (2.4-3.5); Glucose 104 mg/dL (70-105); Potassium 3.6 mmol/L (3.5-5.1); Protein, Total 5.1 g/dL (6.0-8.3); Sodium 135 mmol/L (136-145)
[2019-06-18] MEDS: Propranolol 10 MG TAB PO SCH ×2 (06:44→21:03)
[2019-06-18] MEDS: Artificial Tear Sol 15 ML BOT EA EYE PRN (06:44)
--- NOTE | 2019-06-18 08:02 | PDOC.FM ---
- Subjective Subjective: pt resting comfortably in bed, had large dark bowel movement overnight, denies orthostasis or sob - Objective Vital Signs & Weight: Vital Signs (12 hours) Temp Pulse Resp BP Pulse Ox 06/18/19 06:40 66 113/76 99 06/18/19 05:23 98.9 F 69 16 104/68 96 06/18/19 01:00 99.6 F 77 16 115/74 96 Weight Weight 76.612 kg I&O: 06/17/19 06/18/19 06/19/19 06:59 06:59 06:59 Intake Total 720 Output Total 725 Balance -5 Result Diagrams: 06/18/19 12:01 06/18/19 05:15 Phys Exam - Physical Examination Constitutional: NAD HEENT: moist MMs Neck: no JVD Cardiovascular: no significant murmur Gastrointestinal: non-tender Musculoskeletal: pulses present Neurological: moves all 4 limbs Psychiatric: normal affect Skin: no rash Dx/Plan (1) Cirrhosis Code(s): K74.60 - UNSPECIFIED CIRRHOSIS OF LIVER Status: Acute (2) DM2 (diabetes mellitus, type 2) Status: Acute (3) HTN (hypertension) Code(s): I10 - ESSENTIAL (PRIMARY) HYPERTENSION Status: Acute (4) Hepatitis C Code(s): B19.20 - UNSPECIFIED VIRAL HEPATITIS C WITHOUT HEPATIC COMA Status: Acute (5) Upper GI bleed Code(s): K92.2 - GASTROINTESTINAL HEMORRHAGE, UNSPECIFIED Status: Acute - Plan Plan: Upper GI bleed, hx cirrhosis and eso varices - 2U PRBC total, octreotide drip for a total of 72 hrs, rocephin, protonix IV BID - GI consulted, appreciate recs - On lactulose at half-way,restarted - Hx of hep C, alcoholism - s/p banding of esophageal varices. anemia - monitor H&H, transfuse as necessary HTN, DM - Home meds Anxiety/Depression - Effexor, Risperdal Hyponatremia - monitor Fluids: NS Code status: full PPx: none Dispo: monitor hb, consider repeat EGD to eval for cont bleed Addendum - Attending - Attending Attestation Date/Time: 06/18/19 0418 I personally evaluated the patient and discussed the management with Dr. Sahni I agree with the History, Examination, Assessment and Plan documented above with any addition or exceptions noted below. Note drop in Hgb still above 7 follow expectantly transfuse prn and further evaluation per GI as deemed necessary.
[2019-06-18] MEDS: NPH, Human Insulin Isophane 300 UNIT/3 ML VIAL SC SCH ×2 (08:45→21:03)
[2019-06-18] MEDS: Pantoprazole 40 MG VIAL IVP SCH ×2 (08:55→21:03)
[2019-06-18] MEDS: Octreotide Acetate 1,250 MCG in Sodium Chloride 0.9% 250 ML 250 ML IVPB SCH (09:55)
[2019-06-18 12:10] LABS: Hemoglobin 7.9 g/dL (14.0-18.0)
--- NOTE | 2019-06-18 19:19 | PRG ---
DATE OF SERVICE: 06/18/2019 REASON FOR CONSULTATION: Hematemesis; melena; cirrhosis with bleeding esophageal varices, status post band ligation x4. SUBJECTIVE: Per the patient and per nursing staff, he did have 1 bowel movement today, that was brown in coloration with some dark particulate matter, but no evidence of overt melena. He adds that the abdominal discomfort that he experienced yesterday has since resolved. Otherwise, he denies any nausea, vomiting, fevers, chills, dysphagia, or odynophagia. OBJECTIVE: VITAL SIGNS: Temperature 98.4, pulse 65, blood pressure 112/73, respiratory rate 18, saturating 97% on room air. GENERAL: The patient was lying in bed, in no acute distress. Alert and oriented x4. CARDIOVASCULAR: Regular rate and rhythm. RESPIRATORY: Clear to auscultation bilaterally. ABDOMEN: Normoactive bowel sounds. Soft, nontender, and nondistended. EXTREMITIES: No cyanosis, clubbing, or edema. LABORATORY DATA: H and H with a hemoglobin of 7.9 and a hematocrit of 24.6. Chemistry with a sodium of 135, potassium 3.6, chloride 107, CO2 of 24, BUN 8, creatinine 0.77, glucose 104. IMAGING DATA: No current GI imaging is available for review. ASSESSMENT AND PLAN: The patient is a 48-year-old male with past medical history of diabetes, hypertension, and cirrhosis complicated by bleeding esophageal varices in the past, now presenting with hematemesis and melena with esophagogastroduodenoscopy showing bleeding esophageal varices. 1. Esophageal variceal bleeding: The patient is presenting with complaints of hematemesis and melena, for which he underwent an esophagogastroduodenoscopy on June 15, 2019. During that esophagogastroduodenoscopy, he had findings of LA grade B/C reflux esophagitis in addition to large varices with red karolina sign, which is considered high-risk stigmata. He subsequently underwent band ligation x4 with bleeding seen during the band ligation process, but with good hemostasis at the end of the maneuver. He did have a decrease in his H and H in the postoperative period with a larger black-appearing stool, but since that time has not had any further episodes. During the same time period, he has stabilization of his H and H, indicative of no evidence of further bleeding. Recommendations: a. We would continue to trend his H and H and transfuse as necessary to maintain an H and H of 11/24. b. Continue to monitor clinically for signs of active gastrointestinal bleeding. c. Continue the patient on PPI 40 mg IV b.i.d. d. We would discontinue the octreotide drip today given lack of efficacy past 72 hours. e. Continue antibiotic as part of infectious prophylaxis for treatment of approximately 5 days total duration. f. Pain control per primary team. g. We would continue to monitor the patient with no plans for repeat upper endoscopy at this time. If the patient exhibits significant decrease in his H and H, I would recommend transfer of the patient to [facility] in [place] for emergent transjugular intrahepatic portosystemic shunt. 2. Cirrhosis: The patient is presenting with a history of cirrhosis with most likely etiology being chronic hepatitis C infection or alcohol abuse or combination of the two. Currently, presenting with decompensated disease given the presence of bleeding esophageal varices on upper endoscopy during this admission, but does not have any ascites, lower extremity edema, or evidence of hepatic encephalopathy. Recommendations: a. We would have the patient follow up in the outpatient hepatology clinic at [facility] in 2 to 3 weeks after discharge for continued monitoring and possible evaluation for transplant at that time. We will continue to follow. Please call with any questions. Job ID: [id number]
[2019-06-18] MEDS ORDERED: HumaLOG 300 UNITS/3 ML VIAL SC PRN (21:57)
[2019-06-19] MEDS: HumaLOG 300 UNITS/3 ML VIAL SC PRN ×3 (05:00→17:03)
[2019-06-19 05:53] LABS: #Eosinphils 0.1 thou/uL (0.0-0.7); #Lymphocytes 0.8 thou/uL (1.20-3.40); #Monocytes 0.3 thou/uL (0.11-0.59); #Neutrophils 1.4 thou/uL (1.40-6.50); %Eosinophils 2.5 % (0.0-10.0); %Lymphocytes 30.7 % (21.0-51.0); %Monocytes 11.9 % (0.0-10.0); Hemoglobin 7.5 g/dL (14.0-18.0); Mean Corpuscular HGB CONC 31.7 g/dL (32.0-36.0); Mean Corpuscular Hemoglobin 28.2 pg (27.0-31.0); Mean Platelet Volume 10.1 fL (7.4-10.4); Platelet Count 40 thou/uL (130-400); RBC Distribution Width 14.5 % (11.5-14.5); Red Blood Cell (RBC) Count 2.65 mill/uL (4.70-6.10); White Blood Cell (WBC) Count 2.5 thou/uL (4.8-10.8)
--- NOTE | 2019-06-19 07:59 | PDOC.FM ---
- Subjective Subjective: pt resting comfortably in bed, denies further melanotic stools, hematochezia/ emesis - Objective Vital Signs & Weight: Vital Signs (12 hours) Temp Pulse Resp BP Pulse Ox 06/19/19 07:44 98.2 F 71 18 108/67 97 06/18/19 20:00 97 Weight Weight 76.612 kg I&O: 06/18/19 06/19/19 06/20/19 06:59 06:59 06:59 Intake Total 720 340 Output Total 725 875 Balance -5 -535 Result Diagrams: 06/19/19 05:05 06/18/19 05:15 Phys Exam - Physical Examination Constitutional: NAD HEENT: moist MMs Neck: no JVD Gastrointestinal: soft, non-tender, no distention Musculoskeletal: no edema Neurological: moves all 4 limbs Psychiatric: normal affect Dx/Plan (1) Cirrhosis Code(s): K74.60 - UNSPECIFIED CIRRHOSIS OF LIVER Status: Acute (2) DM2 (diabetes mellitus, type 2) Status: Acute (3) HTN (hypertension) Code(s): I10 - ESSENTIAL (PRIMARY) HYPERTENSION Status: Acute (4) Hepatitis C Code(s): B19.20 - UNSPECIFIED VIRAL HEPATITIS C WITHOUT HEPATIC COMA Status: Acute (5) Upper GI bleed Code(s): K92.2 - GASTROINTESTINAL HEMORRHAGE, UNSPECIFIED Status: Acute - Plan Plan: Upper GI bleed, hx cirrhosis and eso varices - Hx of hep C, alcoholism, s/p banding of esophageal varices. - GI consulted, appreciate recs - 2U PRBC total, continue rocephin, protonix IV BID, lactulose anemia - monitor H&H, transfuse as necessary HTN, DM - Home meds Anxiety/Depression - Effexor, Risperdal Hyponatremia - monitor Fluids: NS Code status: full PPx: none Dispo: monitor hb, IV protonix BID Addendum - Attending - Attending Attestation Date/Time: 06/19/19 1315 I personally evaluated the patient and discussed the management with Dr. Sahni I agree with the History, Examination, Assessment and Plan documented above with any addition or exceptions noted below. Patient VS stable H/H stable he is tolerating diet. See Mention of possible need for TIPS if he rebleeds. At this point patient appears stable for lower level of care will discuss with GI.
[2019-06-19] MEDS: Pantoprazole 40 MG VIAL IVP SCH (08:04)
[2019-06-19] MEDS: NPH, Human Insulin Isophane 300 UNIT/3 ML VIAL SC SCH ×2 (08:04→19:28)
[2019-06-19] MEDS: Propranolol 10 MG TAB PO SCH ×2 (08:04→19:28)
[2019-06-19 19:21] VITALS: BP 102/64; TEMP 99.6
[2019-06-19] MEDS ORDERED: Pantoprazole 40 MG VIAL IVP SCH (21:00)
== END 2019-06-19 19:43 | DRG 432 ==
LOC: ERS 23:52 → T4-A 06-15 02:45 → EEVIPCON 06-15 02:45
PROVIDERS: ADMIT Emergency Medicine; ATTEND Emergency Medicine
PROC: 06L38CZ Occlusion of Esophageal Vein with Extraluminal Device, Via Natural or Artificial Opening Endoscopic (ICD-10-PCS; principal; 2019-06-15)
PROC: 30233N1 Transfusion of Nonautologous Red Blood Cells into Peripheral Vein, Percutaneous Approach (ICD-10-PCS; 2019-06-15)
DX: K74.60 Unspecified cirrhosis of liver (principal); I85.11 Secondary esophageal varices with bleeding; E87.1 Hypo-osmolality and hyponatremia; K76.6 Portal hypertension; F41.9 Anxiety disorder, unspecified; F32.9 Major depressive disorder, single episode, unspecified; K21.0 Gastro-esophageal reflux disease with esophagitis; K31.89 Other diseases of stomach and duodenum; B18.2 Chronic viral hepatitis C; D64.9 Anemia, unspecified; Z79.899 Other long term (current) drug therapy; Z79.84 Long term (current) use of oral hypoglycemic drugs
CPT/HCPCS: 36415; 36416; 36430; 80053; 82010; 85014; 85018; 85025; 85060; 85610; 85730; 86850; 86900; 86901; 96365; 96366; C9113; J0696; J1815; J2354; J2405; J2704; J2765; J3490; J7050; P9016; Q0162